=== PATIENT | male | born 1955 | race Hispanic/Latino ===

== ENCOUNTER 2018-01-17 06:05 | Inpatient (IN) | payer OTHER ==
[2018-01-17 06:53] LABS: #Eosinphils 0.2 thou/uL (0.0-0.7); #Lymphocytes 2.1 thou/uL (1.20-3.40); #Monocytes 0.5 thou/uL (0.11-0.59); #Neutrophils 2.6 thou/uL (1.40-6.50); %Basophils 0.8 % (0.0-1.0); %Lymphocytes 37.9 % (21.0-51.0); %Monocytes 9.2 % (0.0-10.0); %Neutrophils 48.1 % (42.0-75.0); Hemoglobin 14.8 g/dL (14.0-18.0); Mean Corpuscular HGB CONC 34.2 g/dL (32.0-36.0); Mean Corpuscular Hemoglobin 31.6 pg (27.0-31.0); Mean Corpuscular Volume 92.3 fL (78.0-98.0); Mean Platelet Volume 8.1 fL (7.4-10.4); Platelet Count 188 thou/uL (130-400); RBC Distribution Width 11.2 % (11.5-14.5); White Blood Cell (WBC) Count 5.5 thou/uL (4.8-10.8)
[2018-01-17] MEDS ORDERED: Ondansetron PF 4 MG/2 ML Vial IVP PRN ×3 (07:00→17:49)
[2018-01-17] MEDS ORDERED: Acetaminophen 325 MG TAB PO PRN ×3 (07:00→17:49)
[2018-01-17] MEDS ORDERED: Ondansetron ODT 4 MG TAB SL PRN (07:00)
[2018-01-17 07:15] LABS: CKMB 6.1 ng/mL (0-6.6)
[2018-01-17 07:20] LABS: ALT (SGPT) 11 U/L (8-55); AST (SGOT) 16 U/L (5-34); Albumin 4.3 g/dL (3.4-4.8); Alkaline Phosphatase 63 U/L (40-150); Anion Gap 12 mmol/L (10-20); BUN (Urea Nitrogen) 11 mg/dL (8.4-25.7); Bilirubin, Total 0.5 mg/dL (0.2-1.2); Calc. Creatinine Clearance 0 mL/min (70-130); Calcium 9.2 mg/dL (7.8-10.44); Carbon Dioxide 24 mmol/L (23-31); Chloride 105 mmol/L (98-107); Estimated GFR-MDRD 87; Globulin 2.9 g/dL (2.4-3.5); Glucose 157 mg/dL (80-115); Magnesium 2.1 mg/dL (1.6-2.6); Potassium 3.4 mmol/L (3.5-5.1); Protein, Total 7.2 g/dL (5.8-8.1); Sodium 138 mmol/L (136-145)
[2018-01-17 07:27] LABS: Troponin I 0.767 ng/mL (< 0.028)
--- NOTE | 2018-01-17 07:54 | RAD ---
FRONTAL RADIOGRAPH CHEST: DATE: 01/17/2018. COMPARISON: 01/16/2018. HISTORY: Chest pain. FINDINGS: Heart and mediastinal contours are stable. No pneumothorax, pleural fluid, focal consolidation, or a lveolar edema. IMPRESSION: No acute findings. POS: [facility]
[2018-01-17] MEDS ORDERED: Senokot S 8.6-50 MG TAB PO PRN (10:14)
[2018-01-17] MEDS ORDERED: Guaifenesin DM 100-10/5 ML UDCUP PO PRN ×2 (10:14→17:49)
[2018-01-17] MEDS ORDERED: Sodium Chloride 0.9% 1,000 ML IV SCH (10:15)
[2018-01-17 11:05] LABS: Cardiac Risk 4.4 (Less than 4.5)
--- NOTE | 2018-01-17 11:17 | HP ---
REASON FOR ADMISSION: Chest pain, non-ST elevation myocardial infarction. HISTORY OF PRESENT ILLNESS: The patient gives history of having chest pain yesterday night in his pr isabel cell. Patient states he had cold air blowing from the vent right above him and thought he was c ongested. This lasted for 30-40 minutes. This morning he woke up, he felt fine, but was concerned a bout it. He informed skilled nursing officials and they brought him here. His initial troponin at [place] [facility] was apparently normal. Second set troponin went up to 0.76 at present. Currently, he has no ches t pain, palpitation, PND or orthopnea. Has some dry cough, but no expectoration. Patient does not r ecall if he has had any prior stress test. Please note the patient is a very poor historian. No wilfred or history of PR or coronary artery disease as far as he knows. PAST MEDICAL AND SURGICAL HISTORY: Likely mild hypertension, but does not take any medication. No p rior surgical history. He states 5 years back, he had a chest infection. CURRENT MEDICATIONS: None. ALLERGIES: No known drug allergies. PERSONAL HISTORY: Does not abuse alcohol or drugs. No history of smoking. He is currently in [facility]. FAMILY HISTORY: Mother at the age of 85 years. Father is alive. CODE STATUS: FULL patient is and is power of real estate attorney. REVIEW OF SYSTEMS: The following complete review of systems was negative, unless otherwise mentioned in the HPI or below: Constitutional: Weight loss or gain, ability to conduct usual activities. Sk in: Rash, itching. Eyes: Double vision, pain. ENT/Mouth: Nose bleeding, neck stiffness, pain, te nderness. Cardiovascular: Palpitations, dyspnea on exertion, orthopnea. Respiratory: Shortness of breath, wheezing, cough, hemoptysis, fever or night sweats. Gastrointestinal: Poor appetite, abdom inal pain, heartburn, nausea, vomiting, constipation, or diarrhea. Genitourinary: Urgency, frequenc y, dysuria, nocturia. Musculoskeletal: Pain, swelling. Neurologic/Psychiatric: Anxiety, depressio n. Allergy/Immunologic: Skin rash, bleeding tendency. PHYSICAL EXAMINATION: GENERAL: The patient is a 62-year-old male who is currently not in any acute distress. VITAL SIGNS: Blood pressure 148/86, pulse 64 per minute, respiratory rate 18 per minute, temperature 98.6 degrees Fahrenheit, saturating 97% on room air. NECK: Supple, no elevated JVD. HEENT: Extraocular muscles intact. Pupils reacting to light. Oral cavity mucous membranes are mois t. No exudates or congestion. CARDIOVASCULAR: S1, S2 heard. Regular rhythm. RESPIRATORY: Air entry 1+ bilateral. Scattered rhonchi plus no rales or wheezes. ABDOMEN: Soft, bowel sounds heard. No tenderness, rigidity or guarding. EXTREMITIES: No peripheral edema or calf tenderness. VASCULAR SYSTEM: Peripheral pulses 1+ bilateral, no ischemic ulcerations or gangrene. CENTRAL NERVOUS SYSTEM: No gross focal deficits noted. Patient is alert, awake, oriented well. PSYCHIATRIC: The patient's mood is euthymic. No hallucinations or delusions. LABORATORY AND X-RAY FINDINGS: EKG done shows normal sinus rhythm at 65 beats per minute. There is Q-wave seen in the inferior wall leads. T-inversion is seen in V5, V6. There is also poor R-wave pr ogression. Chest x-ray done shows no acute infiltrate. Troponin I 0.76, CK-MB 6.1. Liver enzymes w ithin normal limits. Albumin is 4.3, BUN 11, creatinine 0.8, serum glucose 157, potassium is 3.4. W darrin count of 5, H and H 14 and 43, platelet count 188, MCV is 92. CLINICAL IMPRESSION AND PLAN: The patient will be admitted to telemetry for non-ST elevation myocard ial infarction with chest pain. The patient has some EKG changes suggestive of prior coronary artery disease, although the patient does not recall having had any stress test or cardiac workup in the [facility]. He will be on Lovenox 80 mg subcutaneous q.12 hourly along with full dose aspirin. Nitro paste half inch q.8 hourly. We will gently hydrate him with normal saline at 50 miles per hour. He will b e kept n.p.o. I have informed Dr. Garcia. Echo with 2D Doppler for LV function. We will obtain CT angio chest to rule out PE as well. The patient has clubbing clinically, it is unclear if it is c ongenital. He has never smoked in his life. He will be on a small dose of Lopressor 12.5 mg twice d aildominique.
[2018-01-17 11:21] LABS: Critical Call Chem Troponin I RESULT DECREASING; Troponin I 0.735 ng/mL (< 0.028)
[2018-01-17] MEDS ORDERED: Enoxaparin Sodium 80 MG/0.8 ML SYRINGE SC SCH ×2 (12:00→21:00)
[2018-01-17] MEDS ORDERED: Lidocaine 1% (PF) 30 ML VIAL ONE (12:32)
[2018-01-17] MEDS ORDERED: traMADol HCl 50 MG TAB PO PRN (13:25)
[2018-01-17] MEDS ORDERED: Acetaminophen/Codeine 30-300mg Tablet PO PRN ×2 (13:25)
[2018-01-17] MEDS ORDERED: Nitroglycerin 0.4 MG TAB (25 Tab Bottle) SL PRN (13:25)
--- NOTE | 2018-01-17 13:26 | CON ---
DATE OF CONSULTATION: 01/17/2018 REASON FOR CONSULTATION: Unstable angina. HISTORY OF PRESENT ILLNESS: Mr. Garcia is a 62-year-old gentleman, who recently complained of chest pain. It was acute in onset with neck and jaw radiation. He has had total of 4 episodes in e last several weeks. PAST MEDICAL HISTORY: Hypertension. ALLERGIES: None. SOCIAL HISTORY: No current tobacco or alcohol use. REVIEW OF SYSTEMS: Ten-point review of systems is reviewed and is as above, otherwise negative. MEDICATIONS: Lisinopril. PHYSICAL EXAMINATION: VITAL SIGNS: Blood pressure 133/77, pulse 62, temperature 98.2. GENERAL: Patient is a pleasant male, who is in no acute distress. The patient appears his stated ag e. VITAL SIGNS: NEUROLOGIC: The patient is alert and oriented times 3 with no focal neurologic deficits. HEENT: Sclerae without icterus. Mouth has moist mucous membranes with normal pallor. NECK: No JVD. Carotid upstroke brisk. No bruits bilaterally. LUNGS: Clear to auscultation with unlabored respirations. BACK: No scoliosis or kyphosis. CARDIAC: Regular rate and rhythm with normal S1 and S2. No S3 or S4 noted. No significant rubs, mu rmurs, thrills, or gallops noted throughout the precordium. PMI is not displaced. There is no dalia ternal heave. ABDOMEN: Soft, nontender, nondistended. No peritoneal signs present. No hepatosplenomegaly. No ab normal striae. EXTREMITIES: 2+ femoral and 2+ dorsalis pedis pulses. No cyanosis, clubbing, or edema. SKIN: No gross abnormalities. LABORATORY AND X-RAY FINDINGS: EKG shows normal sinus rhythm with ST-wave changes suggesting ischemi a. Troponin 0.7. IMPRESSION: 1. Unstable angina. 2. Hypertension. RECOMMENDATIONS: At this point, given elevated troponin, EKG changes, and symptoms, I would recommen d coronary angiography. I discussed the procedure in full detail with Mr. Garcia. The risks i nclude but are not limited to the following: , stroke, NV, need for emergency surgery, loss of limb, bleeding, and infection, as well as a reaction to the dye causing kidney failure and needing lo ng-term dialysis. I also discussed the risks of PCI to include all of the above including coronary d issection and perforation in addition to acute stent thrombosis and restenosis. All questions were a nswered. Given the above, patient agreed to proceed with the above procedure. Further recommendatio ns pending the above.
[2018-01-17] MEDS ORDERED: Iopamidol 370 76% 100 ML VIAL ONE ×2 (13:29→13:43)
[2018-01-17] MEDS ORDERED: Sodium Chloride 0.9% 200 ML IV PRN (13:30)
[2018-01-17] MEDS ORDERED: Heparin 10,000 UNITS/1 ML VIAL 30,000 UNITS in Sodium Chloride 0.9% 1,000 ML FS SCH (13:45)
[2018-01-17] MEDS ORDERED: Nitroglycerin 2% Ointment 1 INCH/1 GM Packet TOP SCH (14:00)
[2018-01-17] MEDS ORDERED: Fentanyl 100 MCG/2 ML VIAL ONE (14:12)
[2018-01-17] MEDS ORDERED: Vecuronium 10 MG VIAL ONE ×2 (14:12→14:21)
[2018-01-17] MEDS ORDERED: Midazolam HCl 5 mg/5 ml Vial ONE (14:12)
[2018-01-17] MEDS ORDERED: Dexmedetomidine 200 MCG/2 ML VIAL ONE (14:13)
[2018-01-17] MEDS ORDERED: Nitroglycerin 50 MG/250 ML BOT ONE (14:21)
[2018-01-17] MEDS ORDERED: PROPOFOL 200 MG/20 ML VIAL ONE (14:21)
[2018-01-17] MEDS ORDERED: Calcium Chloride 1 GM/10 ML Abboject SYRINGE ONE (14:21)
[2018-01-17] MEDS ORDERED: Mannitol 12.5 GM/50 ML ONE (14:21)
[2018-01-17] MEDS ORDERED: Heparin 30,000 units/30 ml VIAL ONE (14:21)
[2018-01-17] MEDS ORDERED: Cardioplegic Soln 1,000 ML BAG ONE (14:21)
[2018-01-17] MEDS ORDERED: PHENYLEPHRINE-NS 100 MCG/ML 10 ML SYRINGE ONE (14:21)
[2018-01-17] MEDS ORDERED: Glycopyrrolate 0.2 MG/ML 5 ML SYRINGE ONE (14:21)
[2018-01-17] MEDS ORDERED: Papaverine 60 MG/2 ML VIAL ONE (14:21)
[2018-01-17] MEDS ORDERED: Heparin 5,000 UNITS/ML VIAL ONE (14:21)
[2018-01-17] MEDS ORDERED: Lidocaine 2% PF 100 mg/5 ml Syringe ONE (14:21)
[2018-01-17] MEDS ORDERED: Thrombin 5000 UNITS/5 ML VIAL ONE (14:21)
[2018-01-17] MEDS ORDERED: Magnesium 5 GM/10 ML VIAL ONE (14:21)
[2018-01-17] MEDS ORDERED: Protamine Sulfate 250 MG/25 ML VIAL ONE (14:21)
[2018-01-17] MEDS ORDERED: Aminocaproic Acid 5 GM/20 ML VIAL ONE (14:21)
[2018-01-17] MEDS ORDERED: Potassium Chloride 60 MEQ/30 ML VIAL ONE (14:21)
[2018-01-17] MEDS ORDERED: Milrinone 10 MG/10 ML VIAL ONE (14:52)
[2018-01-17] MEDS ORDERED: Insulin Regular 300 UNITS/3 ML VIAL ONE (14:58)
[2018-01-17] MEDS ORDERED: Norepinephrine 8 MG/0.9% NS 250 ML ONE (15:08)
[2018-01-17] MEDS ORDERED: Sodium Bicarb 50 MEQ/50 ML Abboject 8.4% SYRINGE ONE (16:02)
--- NOTE | 2018-01-17 16:03 | CT ---
CT PULMONARY ANGIOGRAM WITH IV CONTRAST AND 3D POST PROCESSING: HISTORY: Chest pain. FINDINGS: There is good contrast opacification of the pulmonary arterial vasculature without filling defects to suggest pulmonary embolism. There are vascular calcifications without evidence of aneurysmal dilata tion of the thoracic aorta. No pleural or pericardial effusions are seen. There are dependent moses es in the lung bases. No pneumothoraces, lobar consolidation, or pulmonary masses or nodules are see n. There are degenerative changes in the spine. IMPRESSION: No CT evidence of pulmonary embolism. POS: [facility]
[2018-01-17] MEDS ORDERED: Insulin Regular 300 UNITS/3 ML VIAL SC PRN (17:32)
[2018-01-17] MEDS ORDERED: Dextrose 5% in Water 1,000 ML IV PRN (17:32)
[2018-01-17] MEDS ORDERED: Dextrose 50% Abboject 50 ML SYRINGE SLOW IVP PRN (17:32)
[2018-01-17 17:43] LABS: Base Excess (BEa) -2.1 mEq/L (-2.0 to +3.0); CO2 Tension 31.4 mmHg (35.0-45.0); Calcium, Ionized 1.06 mmol/L (1.12-1.30); Carboxyhemoglobin (COHb) 1.2 gm% (0.0-3.0); Hemoglobin (Hb) 13.4 g/dL (14.0-18.0); O2 Tension (PaO2) 119.8 mmHg (> 80.0); Potassium - ABG Lab 3.54 mmol/L (3.70-5.30); pH, Arterial 7.44 (7.35-7.45)
[2018-01-17 17:44] LABS: Puncture Site ALINE
[2018-01-17] MEDS ORDERED: Promethazine HCl 25 MG/ML VIAL IM PRN (17:49)
[2018-01-17] MEDS ORDERED: Norepinephrine 8 MG/0.9% NS 250 ML IVPB PRN (17:49)
[2018-01-17] MEDS ORDERED: Nitroglycerin 50 MG/250 ML BOT 250 ML IVPB PRN (17:49)
[2018-01-17] MEDS ORDERED: Bisacodyl 5 MG TAB PO PRN (17:49)
[2018-01-17] MEDS ORDERED: HYDROcodone/Acetaminophen 5/325 mg Tablet PO PRN ×2 (17:49)
[2018-01-17] MEDS ORDERED: Post-Op Insulin Drip Protocol IVPB ONE (17:49)
[2018-01-17] MEDS ORDERED: Mag-Al 1200 mg/1200 mg/30 ML UDCUP PO PRN (17:49)
[2018-01-17] MEDS ORDERED: Magnesium 2 GM/NS 0.9% 100 ML 2 GM in Premix Bag 1 BAG IVPB SCH (17:49)
[2018-01-17] MEDS ORDERED: Fentanyl 100 MCG/2 ML VIAL SLOW IVP PRN ×2 (17:49)
[2018-01-17] MEDS ORDERED: D5 1/2 NS w/20 mEq KCL 1,000 ML IV SCH (17:49)
[2018-01-17] MEDS ORDERED: Bisacodyl 10 MG SUPP PR PRN (17:49)
[2018-01-17] MEDS ORDERED: hydrALAZINE 20 MG/ML VIAL SLOW IVP PRN (17:49)
[2018-01-17] MEDS ORDERED: Hetastarch 6% 500 ML 500 ML IVPB PRN (17:49)
[2018-01-17] MEDS ORDERED: D5 1/2 NS w/20 mEq KCL 1,000 ML ONE (17:55)
[2018-01-17 18:02] LABS: #Eosinphils 0.1 thou/uL (0.0-0.7); #Lymphocytes 1.4 thou/uL (1.20-3.40); #Monocytes 0.8 thou/uL (0.11-0.59); #Neutrophils 10.6 thou/uL (1.40-6.50); %Basophils 0.2 % (0.0-1.0); %Lymphocytes 10.8 % (21.0-51.0); %Monocytes 6.4 % (0.0-10.0); %Neutrophils 81.6 % (42.0-75.0); Hemoglobin 13.4 g/dL (14.0-18.0); Mean Corpuscular Hemoglobin 31.7 pg (27.0-31.0); Mean Corpuscular Volume 93.2 fL (78.0-98.0); Mean Platelet Volume 8.7 fL (7.4-10.4); Platelet Count 147 thou/uL (130-400); RBC Distribution Width 11.2 % (11.5-14.5); Red Blood Cell (RBC) Count 4.22 mill/uL (4.70-6.10)
[2018-01-17 18:09] LABS: INR-International Normal Ratio 1.3; PTT 35.2 SEC (22.9-36.1)
--- NOTE | 2018-01-17 18:14 | CON ---
DATE OF CONSULTATION: 01/17/2018 REASON FOR CONSULTATION: Evaluate the patient for coronary artery bypass grafting. HISTORY OF PRESENT ILLNESS: Mr. Garcia is a 62-year-old prisoner who was brought here with non -ST elevation myocardial infarction from the [place] [facility]. He was urgently taken for cardiac cathete rization revealing an occluded LAD. He has subtotal occlusion of the right coronary and near occlusi on of his circumflex. I have been asked to see him for coronary artery bypass grafting. PAST MEDICAL HISTORY: Hypertension. PAST SURGICAL HISTORY: None. CURRENT MEDICATIONS: Unknown. ALLERGIES: None. SOCIAL HISTORY: He does not use tobacco or alcohol. He is in skilled nursing for murder. REVIEW OF SYSTEMS: Not performed. It is reviewed through the ER chart. 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 VITAL SIGNS: Height 5 feet 4 inches, weight 173 pounds, BSA is 1.88, temperature is 98.2, pulse is 6 2 and regular, blood pressure 133/77. HEENT: Sclerae nonicteric. Pupils equal and round bilaterally. NECK: Supple. CHEST: Clear bilaterally. HEART: Rhythm is regular. ABDOMEN: Soft, nontender. EXTREMITIES: No edema. VASCULAR: He has palpable carotid, radial, femoral pulses bilaterally. VENOUS: There are no venous varicosities. LABORATORY DATA AND IMAGING DATA: Of note, hemoglobin is 14.8, platelet count is 188,000. Creatinin e is 0.88. Potassium is 3.4. Troponin is 0.76. Chest x-ray shows clear lung gonzalez bilaterally. H is heart is mildly enlarged. His mediastinum is normal. ASSESSMENT AND PLAN: This is a 62-year-old prisoner with an acute non-ST elevation myocardial infarc tion and severe LAD, circumflex, and right coronary artery disease. I have been asked to see him to perform a 3-vessel bypass. The patient is agreeable. We will take him as soon as OR is available on time.
[2018-01-17 18:16] LABS: Anion Gap 10 mmol/L (10-20); BUN (Urea Nitrogen) 7 mg/dL (8.4-25.7); Calc. Creatinine Clearance 138 mL/min (70-130); Calcium 7.5 mg/dL (7.8-10.44); Carbon Dioxide 20 mmol/L (23-31); Chloride 113 mmol/L (98-107); Estimated GFR-MDRD Greater than 90; Glucose 117 mg/dL (80-115); Potassium 3.7 mmol/L (3.5-5.1); Sodium 139 mmol/L (136-145)
[2018-01-17] MEDS: Ketorolac Tromethamine 30 MG/ML VIAL IVP SCH (19:20)
[2018-01-17] MEDS: CEFAZOLIN 2 GM/50 ML BAG IVPB SCH (20:07)
--- NOTE | 2018-01-17 20:26 | RAD ---
AP VIEW CHEST: 01/17/18 HISTORY: Status post open heart surgery. AP view chest obtained on 01/17/18. Comparison made to previous exam from 01/17/18. AP view chest demonstrates sternotomy wires seen. A right subclavian central line is seen. Distal tip overlying the right atrium. Mediastinal surgical drains in place. Endotracheal tube is in good position. The lungs are well aerat ed. No evidence of acute intrathoracic abnormality is seen. No evidence of effusions, pneumonia, or p neumothorax seen. IMPRESSION: Status post operative changes without evidence of acute intrathoracic abnormality seen. POS: [facility]
[2018-01-17] MEDS: Famotidine/PF 20 mg/2ml Vial SLOW IVP SCH (20:42)
[2018-01-17 20:47] LABS: Base Excess (BEa) -3.1 mEq/L (-2.0 to +3.0); CO2 Tension 34.9 mmHg (35.0-45.0); Calcium, Ionized 1.06 mmol/L (1.12-1.30); Carboxyhemoglobin (COHb) 0.8 gm% (0.0-3.0); Hemoglobin (Hb) 13.3 g/dL (14.0-18.0); O2 Tension (PaO2) 133.4 mmHg (> 80.0); Potassium - ABG Lab 3.16 mmol/L (3.70-5.30)
[2018-01-17 20:53] LABS: ALV-art Gradient 108.175 (0-20); Puncture Site LINE
[2018-01-17] MEDS ORDERED: Metoprolol Tartrate 25 MG TAB PO SCH (21:00)
[2018-01-17] MEDS ORDERED: Famotidine 20 MG TAB PO SCH (21:00)
--- NOTE | 2018-01-17 22:59 | OP ---
DATE OF PROCEDURE: 01/17/2018 PREOPERATIVE DIAGNOSES: Coronary artery disease/status post [id number] myocardial infarction/hypertension. POSTOPERATIVE DIAGNOSES: Coronary artery disease/status post [id number] myocardial infarction/hypertension. PROCEDURE: Coronary artery bypass grafting in emergency fashion x3. 1. Left internal mammary artery to 2.5 mm LAD - good conduit and target. 2. Reverse saphenous vein to 3.0 mm OM - good conduit and target. 3. Reverse saphenous vein to 2.5 mm PDA - good conduit and target. SURGEON: Roland Iniguez MD and Zana Gaona MD. ANESTHESIA: General endotracheal; Jason Gross MD, Slim Brito MD, and muna Garcia CRNA PUMP TIME: 32 minutes. CROSS-CLAMP TIME: 27 minutes. LOW CORE TEMPERATURE: 34 degree Celsius. ENGINE REPAIRER SERVICE: Jose Alejandro Castillo. DRAINS: 24-Bahamian chest tubes x2. DRIPS: Levophed at 5 mcg. TRANSFUSIONS: None. DESCRIPTION OF PROCEDURE: After consent was obtained, the patient was brought to the operating room, placed in supine position on the operating room table. Appropriate anesthetic monitor was placed and general endotracheal anesthesia induced. Chest, abdomen, and legs were prepped and draped in usual sterile fashion. Greater saphenous vein was harvested from the left lower extremity utilizing an endoscopic technique. Wounds were irrigated and closed in layers. Median sternotomy was performed. Left internal mammary artery was harvested as a pedicle graft. The patient was systemically heparinized. Distal pedicle was divided and infused with papaverine. Thymic fat and pericardium were divided with electrocautery. Pericardial stay sutures were placed. Aortic and atrial cannulation was performed. After adequate heparinization, the patient underwent retrograde priming and was placed on cardiopulmonary bypass. Distal targets were marked. Aortic cross-clamp was applied and antegrade sanguinous cardioplegic arrest obtained. One liter of antegrade cold [place] cardioplegia was given. Topical cold solution was used. Reverse saphenous vein was anastomosed to PDA in end-to-side fashion with running 7-0 Prolene suture. Anastomosis was tested and was hemostatic. Reverse saphenous vein was anastomosed to the OM in end-to-side fashion with running 7-0 Prolene suture. Anastomosis was tested and was hemostatic. Mammary artery was brought through a window in the pericardium and anastomosed to LAD in end-to-side fashion with running 7-0 Prolene suture. On release of mammary clamps, good hooding of the anastomosis and good distal flow. Pedicle secured with interrupted 6-0 Prolene suture. Cross-clamp was removed and partial occluding clamp placed. Saphenous veins were anastomosed to individual punch sites with running 6-0 Prolene suture. Partial occluding clamp was removed and grafts deaired. Anastomoses were inspected for hemostasis, which was good. The patient was warmed and weaned from cardiopulmonary bypass. After resumption of sinus rhythm, good hemodynamics, and temperature greater than 36.5, bypass was discontinued. Transfusions were given. Decannulation was performed and pursestring sutures secured. Protamine was administered. Twenty-four Bahamian chest tubes were placed in mediastinum. After adequate hemostasis had been obtained, sternum was treated with vancomycin paste. Sternum was closed with #7 wire. Sternum was treated with platelet-rich plasma and wires twisted. Wounds were irrigated and treated with platelet-poor plasma, and closed in multiple layers. Incisions were treated with Dermabond. Needle, sponge, and instrument counts were all reported as correct at the end of procedure. The patient tolerated the procedure well, and was transferred to the Intensive Care Unit in critical condition. ROBIN
[2018-01-17 23:20] LABS: Hemoglobin 12.7 g/dL (14.0-18.0)
[2018-01-17 23:33] LABS: Potassium 3.6 mmol/L (3.5-5.1)
[2018-01-18] MEDS: Ketorolac Tromethamine 30 MG/ML VIAL IVP SCH ×4 (00:01→17:34)
[2018-01-18] MEDS: Potassium Chloride 20 MEQ/100 ML PREMIX BAG IVPB PRN ×2 (00:38→05:53)
[2018-01-18] MEDS: CEFAZOLIN 2 GM/50 ML BAG IVPB SCH ×2 (04:10→11:25)
[2018-01-18 04:57] LABS: #Lymphocytes 0.8 thou/uL (1.20-3.40); #Monocytes 0.7 thou/uL (0.11-0.59); #Neutrophils 7.4 thou/uL (1.40-6.50); %Basophils 0.3 % (0.0-1.0); %Eosinophils 0.1 % (0.0-10.0); %Monocytes 7.9 % (0.0-10.0); %Neutrophils 82.7 % (42.0-75.0); Mean Corpuscular HGB CONC 33.8 g/dL (32.0-36.0); Mean Corpuscular Hemoglobin 31.3 pg (27.0-31.0); Mean Corpuscular Volume 92.6 fL (78.0-98.0); Mean Platelet Volume 8.5 fL (7.4-10.4); Platelet Count 128 thou/uL (130-400); RBC Distribution Width 11.1 % (11.5-14.5); Red Blood Cell (RBC) Count 3.51 mill/uL (4.70-6.10)
[2018-01-18 05:17] LABS: Anion Gap 10 mmol/L (10-20); BUN (Urea Nitrogen) 9 mg/dL (8.4-25.7); Calc. Creatinine Clearance 122 mL/min (70-130); Calcium 8.1 mg/dL (7.8-10.44); Carbon Dioxide 21 mmol/L (23-31); Chloride 111 mmol/L (98-107); Estimated GFR-MDRD Greater than 90; Glucose 117 mg/dL (80-115); Potassium 3.7 mmol/L (3.5-5.1); Sodium 138 mmol/L (136-145)
[2018-01-18 06:29] VITALS: BMI 30.6
--- NOTE | 2018-01-18 08:14 | PDOC.CTH ---
Cardiology Progress Note - Subjective Doing well. No complaints. CT still in place. - Objective Vital Signs Temp Pulse Ox 01/18/18 07:12 98 01/18/18 07:04 99 01/18/18 04:00 98.2 F 01/18/18 00:00 98.0 F Weight 178 lb 5.663 oz 01/17/18 01/18/18 01/19/18 06:59 06:59 05:59 Intake Total 1331.0 0 Output Total 1861 70 Balance -530.0 -70 - Physical Examination General/Neuro: alert & oriented x3, NAD Neck: carotid US brisk, no JVD present Lungs: unlabored respirations Heart: RRR Abdomen: NT/ND, soft Extremities: + femoral B - Labs Result Diagrams: 01/18/18 04:15 01/18/18 04:15 Troponin/CKMB CK-MB (CK-2) 6.1 ng/mL (0-6.6) 01/17/18 06:45 Troponin I 0.735 ng/mL (< 0.028) H* 01/17/18 10:36 - Assessment/Plan [place] CAD s/p CABG Doing well Extubated IP and ambulation Add statin and BB
[2018-01-18] MEDS: Famotidine/PF 20 mg/2ml Vial SLOW IVP SCH (08:39)
[2018-01-18] MEDS ORDERED: Magnesium 2 GM/50 ML 2 GM in Premix Bag 1 BAG IVPB SCH (08:45)
[2018-01-18] MEDS ORDERED: Enoxaparin Sodium 40 MG/0.4 ML SYRINGE SC SCH (09:00)
[2018-01-18] MEDS ORDERED: Magnesium 2 GM/NS 0.9% 100 ML 2 GM in Premix Bag 1 BAG IVPB SCH (09:00)
[2018-01-18] MEDS ORDERED: Aspirin 325 MG TAB PO SCH ×2 (09:00)
--- NOTE | 2018-01-18 11:39 | RAD ---
PORTABLE CHEST: HISTORY: Pop open heart surgery. COMPARISON: 01/17/2018 exam. FINDINGS: The endotracheal tube has been removed. There is otherwise a stable appearance to the chest. IMPRESSION: Interval removal of the endotracheal tube. POS: [facility]
--- NOTE | 2018-01-18 12:04 | PDOC.PN ---
- Subjective Encounter Start Date: 01/18/18 Encounter Start Time: 10:20 Subjective: is sitting in chair, no sob -: feels better, ate his breakfast well per RN -: got extubated overnight - Objective Resuscitation Status: Resuscitation Status FULL:Full Resuscitation MAR Reviewed: Yes Vital Signs & Weight: Vital Signs (12 hours) Temp Pulse Ox 01/18/18 07:12 98 01/18/18 07:04 99 01/18/18 04:00 98.2 F Weight Weight 178 lb 5.663 oz Most Recent Monitor Data Heart Rate from ECG 90 NIBP 108/62 NIBP BP-Mean 77 Respiration from ECG 22 SpO2 98 I&O: 01/17/18 01/18/18 01/19/18 06:59 06:59 05:59 Intake Total 1331.0 365 Output Total 1861 170 Balance -530.0 195 Result Diagrams: 01/18/18 04:15 01/18/18 04:15 Additional Labs: Accuchecks 01/18/18 01/18/18 01/18/18 08:11 06:15 05:03 POC Glucose 103 110 111 H 01/18/18 01/18/18 01/18/18 04:16 03:11 02:11 POC Glucose 124 H 113 H 123 H 01/18/18 01/17/18 01/17/18 01:05 23:59 23:01 POC Glucose 131 H 133 H 127 H 01/17/18 01/17/18 01/17/18 22:07 20:59 20:05 POC Glucose 107 141 H 111 H 01/17/18 01/17/18 01/17/18 19:06 17:43 17:01 POC Glucose 125 H 113 H 132 H 01/17/18 01/17/18 01/17/18 16:24 15:58 15:28 POC Glucose 156 H 285 H 193 H 01/17/18 14:56 POC Glucose 200 H Phys Exam - Physical Examination HEENT: PERRLA, moist MMs Neck: no JVD, supple Respiratory: no wheezing chest tube+ Cardiovascular: RRR, no significant murmur Gastrointestinal: soft, non-tender, positive bowel sounds Musculoskeletal: no edema, pulses present Neurological: non-focal, moves all 4 limbs Psychiatric: normal affect, A&O x 3 Dx/Plan (1) S/P CABG (coronary artery bypass graft) Code(s): Z95.1 - PRESENCE OF AORTOCORONARY BYPASS GRAFT Status: Acute Comment: x3, garcia to lad, rsvg to OM and PDA (2) NSTEMI (non-ST elevated myocardial infarction) Code(s): I21.4 - NON-ST ELEVATION (NSTEMI) MYOCARDIAL INFARCTION Status: Acute (3) HTN (hypertension) Code(s): I10 - ESSENTIAL (PRIMARY) HYPERTENSION Status: Acute Qualifiers: Hypertension type: essential hypertension Qualified Code(s): I10 - Essential (primary) hypertension (4) DM type 2 (diabetes mellitus, type 2) Status: Acute Qualifiers: Diabetes mellitus fpc insulin use: without exterminator helper use Diabetes mellitus complication status: with unspecified complications Qualified Code(s) : E11.8 - Type 2 diabetes mellitus with unspecified complications Comment: new onset (5) Dyslipidemia Code(s): E78.5 - HYPERLIPIDEMIA, UNSPECIFIED Status: Acute - Plan may start asp, lipitor, small dose of coreg -: levemir 5 u bid once he is off post cabg insulin protocol -: is recovering well post op -: will f/u * . Review of Systems - Medications/Allergies Allergies/Adverse Reactions: Allergies Allergy/AdvReac Type Severity Reaction Status Date / Time No Known Allergies Allergy Verified 01/17/18 10:37 Medications: Current Medications Acetaminophen (Tylenol) 650 mg PO Q6H PRN PRN Reason: Headache/Fever Or Mild Pain Hydrocodone Bitart/Acetaminophen ([place] 5/325) 1 tab PO Q4H PRN PRN Reason: Moderate Pain (4-6) Hydrocodone Bitart/Acetaminophen ([place] 5/325) 2 tab PO Q4H PRN PRN Reason: Severe Pain (7-10) Al Hydroxide/Mg Hydroxide (Maalox) 30 ml PO Q4H PRN PRN Reason: Indigestion Albumin Human (Albumin 5%) 12.5 gm IVPB Q6H PRN PRN Reason: To Maintain SBP> 90 mmHG Stop: 01/18/18 17:50 Albumin Human (Albumin 5%) 25 gm IVPB Q6H PRN PRN Reason: To Maintain SBP > 90 mmHG Stop: 01/18/18 17:50 Last Admin: 01/18/18 02:35 Dose: 25 gm Albuterol/Ipratropium (Duoneb) 3 ml NEB [id number] PRN PRN Reason: SHORTNESS OF BREATH Aspirin (Aspirin) 325 mg PO DAILY [facility] Last Admin: 01/18/18 08:39 Dose: 325 mg Atorvastatin Calcium (Lipitor) 10 mg PO HS [facility] Bisacodyl (Dulcolax) 10 mg PO Q12H PRN PRN Reason: Constipation Bisacodyl (Dulcolax) 10 mg [place] Q12H PRN PRN Reason: Constipation Famotidine (Pepcid) 20 mg PO BID [facility] Fentanyl (Sublimaze) 25 mcg SLOW IVP Q2H PRN PRN Reason: Moderate Pain (4-6) Stop: 01/19/18 17:08 Fentanyl (Sublimaze) 50 mcg SLOW IVP Q2H PRN PRN Reason: Severe Pain (7-10) Stop: 01/19/18 17:08 Guaifenesin/Dextromethorphan (Robitussin Dm) 15 ml PO Q4H PRN PRN Reason: Cough Hydralazine HCl (Apresoline) 10 mg SLOW IVP Q6H PRN PRN Reason: To Maintain SBP< 140mmHG Hetastarch/Sodium Chloride (Hespan) 500 mls @ 0 mls/hr IVPB PRN PRN PRN Reason: To Maintain SBP > 90mmHg Stop: 01/18/18 17:08 Norepinephrine Bitartrate (Levophed) 250 mls @ 0 mls/hr IVPB PRN PRN; Protocol PRN Reason: To maintain SBP > 90 mmHG Last Admin: 01/17/18 19:21 Dose: 250 mls Magnesium Sulfate 2 gm/ Device 100 mls @ 100 mls/hr IVPB ONE [facility] Stop: 01/18/18 17:50 Magnesium Sulfate 2 gm/ Device 100 mls @ 100 mls/hr IVPB QAM [facility] Stop: 01/19/18 09:59 Last Admin: 01/18/18 08:51 Dose: Not Given Levofloxacin 500 mg/ Device 100 mls @ 100 mls/hr IVPB 1200 [facility] Stop: 01/18/18 12:59 Last Admin: 01/18/18 11:25 Dose: 100 mls Ketorolac Tromethamine (Toradol) 30 mg IVP Q6HR [facility] Stop: 01/20/18 18:01 Last Admin: 01/18/18 11:26 Dose: 30 mg Ondansetron HCl (Zofran) 4 mg IVP Q6H PRN PRN Reason: Nausea/Vomiting Potassium Chloride (Kcl) 20 meq IVPB PRN PRN PRN Reason: K level </= 4.0 Last Admin: 01/18/18 05:53 Dose: 20 meq Promethazine HCl (Phenergan) 6.25 mg IM Q4H PRN PRN Reason: Nausea/Vomiting Sodium Chloride (Flush - Normal Saline) 10 ml IVF PRN PRN PRN Reason: Saline Flush
[2018-01-18] MEDS: Famotidine 20 MG TAB PO SCH (20:41)
[2018-01-18] MEDS: Atorvastatin Calcium 10 MG TAB PO SCH (20:41)
[2018-01-19] MEDS: Ketorolac Tromethamine 30 MG/ML VIAL IVP SCH ×4 (00:15→17:42)
[2018-01-19] MEDS ORDERED: Milk Of Magnesia 30 ML UDCUP PO PRN (08:07)
[2018-01-19] MEDS ORDERED: Mag-Al 1200 mg/1200 mg/30 ML UDCUP PO PRN (08:07)
[2018-01-19] MEDS ORDERED: Bisacodyl 5 MG TAB PO PRN (08:07)
[2018-01-19] MEDS ORDERED: Nitroglycerin 0.4 MG TAB (25 Tab Bottle) SL PRN (08:07)
[2018-01-19] MEDS ORDERED: Zolpidem Tartrate 5 MG TAB PO PRN (08:07)
[2018-01-19] MEDS ORDERED: Artificial Tears 18 DROP/0.9 ML EA EYE PRN (08:07)
[2018-01-19] MEDS ORDERED: Bisacodyl 10 MG SUPP PR PRN (08:07)
[2018-01-19] MEDS ORDERED: diphenhydrAMINE 25 MG CAP PO PRN (08:07)
[2018-01-19] MEDS ORDERED: Mineral Oil ENEMA PR PRN (08:07)
[2018-01-19] MEDS: Carvedilol 3.125 MG TAB PO SCH ×2 (08:43→22:48)
[2018-01-19] MEDS: Famotidine 20 MG TAB PO SCH ×2 (08:43→22:48)
[2018-01-19] MEDS: Aspirin 325 mg Enteric Coated Tablet PO SCH (08:43)
--- NOTE | 2018-01-19 10:18 | PDOC.CTH ---
Cardiology Progress Note - Subjective No complaints. No CP/SOB. - Objective Vital Signs Temp Pulse Ox 01/19/18 08:00 99.0 F 93 L 01/19/18 04:00 99.6 F 01/19/18 00:00 98.9 F Admit Weight 178 lb 5.663 oz Weight 176 lb 9.444 oz 01/18/18 01/19/18 01/20/18 07:59 06:59 06:59 Intake Total 360 Output Total 55 Balance 305 - Physical Examination General/Neuro: alert & oriented x3 Neck: no JVD present Lungs: CTA Heart: RRR Abdomen: NT/ND Extremities: other: (no edema) - Telemetry Telemetry Rhythm: SR - Labs Result Diagrams: 01/18/18 04:15 01/18/18 04:15 Troponin/CKMB CK-MB (CK-2) 6.1 ng/mL (0-6.6) 01/17/18 06:45 Troponin I 0.735 ng/mL (< 0.028) H* 01/17/18 10:36 - Assessment/Plan 1. UA 2. 3VCAD s/p CABG Doing well. No changes to care. Continue increased activity.
--- NOTE | 2018-01-19 10:18 | PDOC.PN ---
- Subjective Encounter Start Date: 01/19/18 Encounter Start Time: 09:45 Subjective: sitting in chair, had his breakfast -: no sob or pain - Objective Resuscitation Status: Resuscitation Status FULL:Full Resuscitation MAR Reviewed: Yes Vital Signs & Weight: Vital Signs (12 hours) Temp Pulse Ox 01/19/18 08:00 99.0 F 93 L 01/19/18 04:00 99.6 F 01/19/18 00:00 98.9 F Weight Admit Weight 178 lb 5.663 oz Weight 176 lb 9.444 oz Most Recent Monitor Data Heart Rate from ECG 87 NIBP 102/56 NIBP BP-Mean 71 Respiration from ECG 20 SpO2 96 I&O: 01/18/18 01/19/18 01/20/18 07:59 06:59 06:59 Intake Total 360 Output Total 55 Balance 305 Result Diagrams: 01/18/18 04:15 01/18/18 04:15 Phys Exam - Physical Examination HEENT: PERRLA, moist MMs Neck: no JVD, supple Respiratory: no wheezing, no rales Cardiovascular: RRR, no significant murmur Gastrointestinal: soft, non-tender, positive bowel sounds Musculoskeletal: no edema, pulses present Neurological: non-focal, moves all 4 limbs Psychiatric: normal affect, A&O x 3 Dx/Plan (1) S/P CABG (coronary artery bypass graft) Code(s): Z95.1 - PRESENCE OF AORTOCORONARY BYPASS GRAFT Status: Acute Comment: x3, garcia to lad, rsvg to OM and PDA (2) NSTEMI (non-ST elevated myocardial infarction) Code(s): I21.4 - NON-ST ELEVATION (NSTEMI) MYOCARDIAL INFARCTION Status: Acute (3) HTN (hypertension) Code(s): I10 - ESSENTIAL (PRIMARY) HYPERTENSION Status: Acute Qualifiers: Hypertension type: essential hypertension Qualified Code(s): I10 - Essential (primary) hypertension (4) DM type 2 (diabetes mellitus, type 2) Status: Acute Qualifiers: Diabetes mellitus rod hanger insulin use: without rod hanger use Diabetes mellitus complication status: with unspecified complications Qualified Code(s) : E11.8 - Type 2 diabetes mellitus with unspecified complications Comment: new onset (5) Dyslipidemia Code(s): E78.5 - HYPERLIPIDEMIA, UNSPECIFIED Status: Acute - Plan got his chest tubes removed -: getting tx to tele, post op recovering well -: sbp around 90-100 -: continue asp, coreg and lipitor, nebs prn -: to amb as tolerated * . Review of Systems - Medications/Allergies Allergies/Adverse Reactions: Allergies Allergy/AdvReac Type Severity Reaction Status Date / Time No Known Allergies Allergy Verified 01/17/18 10:37 Medications: Current Medications Hydrocodone Bitart/Acetaminophen ([place] 5/325) 1 tab PO Q4H PRN PRN Reason: Moderate Pain (4-6) Hydrocodone Bitart/Acetaminophen ([place] 5/325) 2 tab PO Q4H PRN PRN Reason: Severe Pain (7-10) Al Hydroxide/Mg Hydroxide (Maalox) 30 ml PO Q4H PRN PRN Reason: Indigestion Albuterol/Ipratropium (Duoneb) 3 ml NEB [id number] PRN PRN Reason: SHORTNESS OF BREATH Artificial Tears (Tears Naturale) 0 drop EA EYE PRN PRN PRN Reason: Dry Eyes Aspirin (Ecotrin) 325 mg PO DAILY [facility] Last Admin: 01/19/18 08:43 Dose: 325 mg Atorvastatin Calcium (Lipitor) 10 mg PO HS [facility] Last Admin: 01/18/18 20:41 Dose: 10 mg Bisacodyl (Dulcolax) 10 mg PO Q12H PRN PRN Reason: Constipation Bisacodyl (Dulcolax) 10 mg [place] Q12H PRN PRN Reason: Constipation Carvedilol (Coreg) 3.125 mg PO BID [facility] Last Admin: 01/19/18 08:43 Dose: 3.125 mg Diphenhydramine HCl (Benadryl) 25 mg PO Q6H PRN PRN Reason: Itching & Insomnia or Benigno Fransico Famotidine (Pepcid) 20 mg PO BID [facility] Last Admin: 01/19/18 08:43 Dose: 20 mg Guaifenesin/Dextromethorphan (Robitussin Dm) 15 ml PO Q4H PRN PRN Reason: Cough Ketorolac Tromethamine (Toradol) 30 mg IVP Q6HR [facility] Stop: 01/20/18 18:01 Last Admin: 01/19/18 05:15 Dose: 30 mg Magnesium Hydroxide (Milk Of Magnesium) 30 ml PO Q12H PRN PRN Reason: Constipation Mineral Oil (Fleet Mineral Oil) 133 ml [place] DAILYPRN PRN PRN Reason: Constipation Nitroglycerin (Nitrostat) 0.4 mg SL Q5MIN PRN PRN Reason: Chest Pain Ondansetron HCl (Zofran) 4 mg IVP Q6H PRN PRN Reason: Nausea/Vomiting Sodium Chloride (Flush - Normal Saline) 10 ml IVF PRN PRN PRN Reason: Saline Flush Zolpidem Tartrate (Ambien) 5 mg PO HSPRN PRN PRN Reason: Insomnia
[2018-01-19] MEDS: Guaifenesin DM 100-10/5 ML UDCUP PO PRN ×2 (10:24→17:41)
--- NOTE | 2018-01-19 10:33 | RAD ---
PORTABLE CHEST: HISTORY: Postop open heart surgery. COMPARISON: Prior day's study. FINDINGS: Heart size remains enlarged with postop sternotomy change. Right subclavian line is unchanged in pos ition. Some subsegmental atelectatic change is seen in the right base. IMPRESSION: Stable exam. POS: [facility]
[2018-01-19] MEDS ORDERED: Dextrose 50% Abboject 50 ML SYRINGE SLOW IVP PRN (17:11)
[2018-01-19] MEDS ORDERED: Dextrose 5% in Water 1,000 ML IV PRN (17:11)
[2018-01-19] MEDS: HumaLOG 300 UNITS/3 ML VIAL SC PRN ×2 (17:39→22:49)
[2018-01-19] MEDS: metFORMIN 500 MG TAB PO SCH (22:48)
[2018-01-19] MEDS: Atorvastatin Calcium 10 MG TAB PO SCH (22:48)
[2018-01-20] MEDS: Ketorolac Tromethamine 30 MG/ML VIAL IVP SCH ×4 (01:44→17:33)
[2018-01-20] MEDS: Guaifenesin DM 100-10/5 ML UDCUP PO PRN ×2 (01:45→06:31)
[2018-01-20] MEDS: metFORMIN 500 MG TAB PO SCH ×3 (09:20→22:18)
[2018-01-20] MEDS: Aspirin 325 mg Enteric Coated Tablet PO SCH (09:20)
[2018-01-20] MEDS: Carvedilol 3.125 MG TAB PO SCH ×2 (09:20→22:18)
[2018-01-20] MEDS: Famotidine 20 MG TAB PO SCH ×2 (09:20→22:18)
[2018-01-20] MEDS: HumaLOG 300 UNITS/3 ML VIAL SC PRN ×4 (09:21→22:20)
[2018-01-20] MEDS ORDERED: Insulin Glargine 20 UNITS in Pre-Filled Syringe 1 EACH SC SCH (11:28)
--- NOTE | 2018-01-20 11:31 | PDOC.PN ---
- Subjective Encounter Start Date: 01/20/18 Encounter Start Time: 09:45 Subjective: feels better, no pain or sob -: is amb with cardiac rehab and eating well - Objective Resuscitation Status: Resuscitation Status FULL:Full Resuscitation MAR Reviewed: Yes Vital Signs & Weight: Vital Signs (12 hours) Temp Pulse Resp BP Pulse Ox 01/20/18 08:00 98.4 F 76 16 107/62 93 L 01/20/18 03:40 98.7 F 74 20 101/55 L 96 Weight Admit Weight 178 lb 5.663 oz Weight 188 lb 11.451 oz Most Recent Monitor Data Heart Rate from ECG 87 NIBP 102/56 NIBP BP-Mean 71 Respiration from ECG 20 SpO2 96 I&O: 01/19/18 01/20/18 01/21/18 06:59 06:59 06:59 Intake Total 600 240 Output Total 735 Balance -135 240 Result Diagrams: 01/18/18 04:15 01/18/18 04:15 Additional Labs: Accuchecks 01/20/18 01/20/18 01/19/18 11:14 05:41 20:57 POC Glucose 293 H 276 H 265 H 01/19/18 16:56 POC Glucose 330 H Phys Exam - Physical Examination HEENT: PERRLA, moist MMs Neck: no JVD, supple Respiratory: no wheezing, no rales Cardiovascular: RRR, no significant murmur Gastrointestinal: soft, non-tender, positive bowel sounds Musculoskeletal: no edema, pulses present Neurological: non-focal, moves all 4 limbs Psychiatric: normal affect, A&O x 3 Dx/Plan (1) S/P CABG (coronary artery bypass graft) Code(s): Z95.1 - PRESENCE OF AORTOCORONARY BYPASS GRAFT Status: Acute Comment: x3, garcia to lad, rsvg to OM and PDA (2) NSTEMI (non-ST elevated myocardial infarction) Code(s): I21.4 - NON-ST ELEVATION (NSTEMI) MYOCARDIAL INFARCTION Status: Acute (3) HTN (hypertension) Code(s): I10 - ESSENTIAL (PRIMARY) HYPERTENSION Status: Acute Qualifiers: Hypertension type: essential hypertension Qualified Code(s): I10 - Essential (primary) hypertension (4) DM type 2 (diabetes mellitus, type 2) Status: Acute Qualifiers: 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 Review of Systems - Medications/Allergies Allergies/Adverse Reactions: Allergies Allergy/AdvReac Type Severity Reaction Status Date / Time No Known Allergies Allergy Verified 01/17/18 10:37 Medications: Current Medications Hydrocodone Bitart/Acetaminophen ([place] 5/325) 1 tab PO Q4H PRN PRN Reason: Moderate Pain (4-6) Last Admin: 01/19/18 17:41 Dose: 1 tab Hydrocodone Bitart/Acetaminophen ([place] 5/325) 2 tab PO Q4H PRN PRN Reason: Severe Pain (7-10) Last Admin: 01/19/18 10:24 Dose: 2 tab Al Hydroxide/Mg Hydroxide (Maalox) 30 ml PO Q4H PRN PRN Reason: Indigestion Albuterol/Ipratropium (Duoneb) 3 ml NEB [id number] PRN PRN Reason: SHORTNESS OF BREATH Artificial Tears (Tears Naturale) 0 drop EA EYE PRN PRN PRN Reason: Dry Eyes Aspirin (Ecotrin) 325 mg PO DAILY [facility] Last Admin: 01/20/18 09:20 Dose: 325 mg Atorvastatin Calcium (Lipitor) 10 mg PO HS [facility] Last Admin: 01/19/18 22:48 Dose: 10 mg Bisacodyl (Dulcolax) 10 mg PO Q12H PRN PRN Reason: Constipation Last Admin: 01/19/18 10:23 Dose: 10 mg Bisacodyl (Dulcolax) 10 mg ID Q12H PRN PRN Reason: Constipation Carvedilol (Coreg) 3.125 mg PO BID [facility] Last Admin: 01/20/18 09:20 Dose: Not Given Dextrose/Water (Dextrose 50%) 25 gm SLOW IVP PRN PRN PRN Reason: Hypoglycemia Diphenhydramine HCl (Benadryl) 25 mg PO Q6H PRN PRN Reason: Itching & Insomnia or Benigno Fransico Last Admin: 01/19/18 22:48 Dose: 25 mg Famotidine (Pepcid) 20 mg PO BID [facility] Last Admin: 01/20/18 09:20 Dose: 20 mg Glucagon (Glucagon) 1 mg IM PRN PRN PRN Reason: Hypoglycemia Guaifenesin/Dextromethorphan (Robitussin Dm) 15 ml PO Q4H PRN PRN Reason: Cough Last Admin: 01/20/18 06:31 Dose: 15 ml Dextrose/Water (D5w) 1,000 mls @ 0 mls/hr IV .Q0M PRN PRN Reason: Hypoglycemia Insulin Glargine 20 units/ (Miscellaneous Medication) 0.2 mls @ 0 mls/hr [facility] Stop: 01/20/18 11:29 Insulin Human Lispro (Humalog) 0 units SC .MODERATE SLIDING SC PRN PRN Reason: Moderate Correctional Scale Last Admin: 01/20/18 09:21 Dose: 6 unit Insulin Human Lispro (Humalog) 0 units SC .BEDTIME SLIDING SC PRN PRN Reason: Bedtime Correctional Scale Last Admin: 01/19/18 22:49 Dose: 3 unit Ketorolac Tromethamine (Toradol) 30 mg IVP Q6HR [facility] Stop: 01/20/18 18:01 Last Admin: 01/20/18 06:30 Dose: 30 mg Magnesium Hydroxide (Milk Of Magnesium) 30 ml PO Q12H PRN PRN Reason: Constipation Last Admin: 01/19/18 10:24 Dose: 30 ml Metformin HCl (Glucophage) 500 mg PO TID [facility] Last Admin: 01/20/18 09:20 Dose: 500 mg Mineral Oil (Fleet Mineral Oil) 133 ml ID DAILYPRN PRN PRN Reason: Constipation Nitroglycerin (Nitrostat) 0.4 mg SL Q5MIN PRN PRN Reason: Chest Pain Ondansetron HCl (Zofran) 4 mg IVP Q6H PRN PRN Reason: Nausea/Vomiting Sodium Chloride (Flush - Normal Saline) 10 ml IVF PRN PRN PRN Reason: Saline Flush Zolpidem Tartrate (Ambien) 5 mg PO HSPRN PRN PRN Reason: Insomnia
--- NOTE | 2018-01-20 11:55 | EKG ---
Test Reason : Blood Pressure : / mmHG Vent. Rate : 071 BPM Atrial Rate : 071 BPM P-R Int : 190 ms QRS Dur : 092 ms QT Int : 444 ms P-R-T Axes : 021 -21 -56 degrees QTc Int : 482 ms Normal sinus rhythm Inferior infarct (cited on or before 17-JAN-2018) Abnormal ECG Confirmed by HONG AMANDA ([id number]) on 01/20/2018 11:55:20 AM Referred By: ROSEANNE Confirmed By:HONG AMANDA
[2018-01-20] MEDS: Atorvastatin Calcium 10 MG TAB PO SCH (22:18)
--- NOTE | 2018-01-21 06:48 | DIS ---
DATE OF ADMISSION: 01/17/2018 DATE OF DISCHARGE: Transferred to the [facility] 01/20/2018. DIAGNOSES: 1. Coronary artery disease. 2. ST elevation myocardial infarction. 3. Hypertension. 4. Hyperlipidemia. PROCEDURES: 1. Cardiac catheterization. 2. Emergency coronary artery bypass grafting x3 - 1) Left internal mammary artery to LAD. 2) Reversed saphenous vein to OM; 3) Reversed saphenous vein to PDA. DESCRIPTION OF HOSPITAL STAY: Mr. Garcia was brought from [facility] with chest pain. He underwent cardiac catheterization revealing critical 3-vessel disease. He was taken to the operating room and underwent bypass as above. He has done well postoperatively, being transferred to the [facility] . DISCHARGE MEDICATIONS: 1. Aspirin 325 mg every day. 2. Lipitor 10 mg at bedtime. 3. Coreg 3.125 mg b.i.d. 4. Glucophage 500 mg t.i.d. 5. [place] 5/325 1-2 q.6 hours p.r.n. pain.
[2018-01-21] MEDS: Famotidine 20 MG TAB PO SCH (08:49)
[2018-01-21] MEDS: metFORMIN 500 MG TAB PO SCH (08:49)
[2018-01-21] MEDS: Carvedilol 3.125 MG TAB PO SCH (08:50)
[2018-01-21] MEDS: Aspirin 325 mg Enteric Coated Tablet PO SCH (08:50)
[2018-01-21] MEDS ORDERED: Losartan 25 MG TAB PO SCH (09:00)
[2018-01-21] MEDS ORDERED: Clopidogrel Bisulfate 75 MG TAB PO SCH (09:15)
--- NOTE | 2018-01-21 11:19 | PDOC.PN ---
- Subjective Encounter Start Date: 01/21/18 Encounter Start Time: 09:45 Subjective: no chest pain or sob -: is amb and eating well - Objective Resuscitation Status: Resuscitation Status FULL:Full Resuscitation MAR Reviewed: Yes Vital Signs & Weight: Vital Signs (12 hours) Temp Pulse Resp BP Pulse Ox 01/21/18 07:23 99.4 F 80 18 131/77 96 01/21/18 04:00 99.5 F 79 18 134/79 96 01/21/18 00:55 96 Weight Admit Weight 178 lb 5.663 oz Weight 186 lb 12.8 oz Most Recent Monitor Data Heart Rate from ECG 87 NIBP 102/56 NIBP BP-Mean 71 Respiration from ECG 20 SpO2 96 I&O: 01/20/18 01/21/18 01/22/18 06:59 06:59 06:59 Intake Total 600 1020 Output Total 735 Balance -135 1020 Result Diagrams: 01/18/18 04:15 01/18/18 04:15 Additional Labs: Accuchecks 01/21/18 01/21/18 01/20/18 10:53 05:41 20:50 POC Glucose 161 H 167 H 229 H 01/20/18 01/20/18 17:12 11:14 POC Glucose 211 H 293 H Phys Exam - Physical Examination HEENT: PERRLA, moist MMs Neck: no JVD, supple Respiratory: no wheezing, no rales Cardiovascular: RRR, no significant murmur Gastrointestinal: soft, non-tender, positive bowel sounds Musculoskeletal: no edema, pulses present Neurological: non-focal, moves all 4 limbs Psychiatric: normal affect, A&O x 3 Dx/Plan (1) S/P CABG (coronary artery bypass graft) Code(s): Z95.1 - PRESENCE OF AORTOCORONARY BYPASS GRAFT Status: Acute Comment: x3, garcia to lad, rsvg to OM and PDA (2) NSTEMI (non-ST elevated myocardial infarction) Code(s): I21.4 - NON-ST ELEVATION (NSTEMI) MYOCARDIAL INFARCTION Status: Acute (3) HTN (hypertension) Code(s): I10 - ESSENTIAL (PRIMARY) HYPERTENSION Status: Acute Qualifiers: Hypertension type: essential hypertension Qualified Code(s): I10 - Essential (primary) hypertension (4) DM type 2 (diabetes mellitus, type 2) Status: Acute Qualifiers: Diabetes mellitus 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
--- NOTE | 2018-01-21 12:49 | PDOC.CTH ---
Cardiology Progress Note - Subjective No complaints - Objective Vital Signs Temp Pulse Resp BP Pulse Ox 01/21/18 07:23 99.4 F 80 18 131/77 96 01/21/18 04:00 99.5 F 79 18 134/79 96 01/21/18 00:55 96 Admit Weight 178 lb 5.663 oz Weight 186 lb 12.8 oz 01/20/18 01/21/18 01/22/18 06:59 06:59 06:59 Intake Total 600 1020 Output Total 735 Balance -135 1020 - Physical Examination General/Neuro: alert & oriented x3, NAD Neck: carotid US brisk, no JVD present Lungs: unlabored respirations Heart: PMI normal, RRR Abdomen: NT/ND, soft Extremities: + femoral B - Telemetry Telemetry Rhythm: sr - Labs Result Diagrams: 01/18/18 04:15 01/18/18 04:15 Troponin/CKMB CK-MB (CK-2) 6.1 ng/mL (0-6.6) 01/17/18 06:45 Troponin I 0.735 ng/mL (< 0.028) H* 01/17/18 10:36 - Assessment/Plan [place] Severe CAD s/p CABG Add ARB for DM On BB, statin and ASA Ok for dc from my standpoint
[2018-01-21 14:09] VITALS: BP 130/79; TEMP 99
[2018-01-22] MEDS ORDERED: Clopidogrel Bisulfate 75 MG TAB PO SCH (09:00)
== END 2018-01-21 15:10 | DRG 234 ==
LOC: ERS 06:05 → 2NO 10:08 → EEVIPCON 10:08 → CCU 16:09 → 2NO 01-19 08:07
PROVIDERS: ADMIT Internal Medicine; ATTEND Internal Medicine
PROC: 02100Z9 Bypass Coronary Artery, One Artery from Left Internal Mammary, Open Approach (ICD-10-PCS; principal; 2018-01-17)
PROC: 4A023N7 Measurement of Cardiac Sampling and Pressure, Left Heart, Percutaneous Approach (ICD-10-PCS; 2018-01-17)
PROC: 021109W Bypass Coronary Artery, Two Arteries from Aorta with Autologous Venous Tissue, Open Approach (ICD-10-PCS; 2018-01-17)
PROC: 06BQ4ZZ Excision of Left Saphenous Vein, Percutaneous Endoscopic Approach (ICD-10-PCS; 2018-01-17)
PROC: 5A1221Z Performance of Cardiac Output, Continuous (ICD-10-PCS; 2018-01-17)
PROC: B2111ZZ Fluoroscopy of Multiple Coronary Arteries using Low Osmolar Contrast (ICD-10-PCS; 2018-01-17)
PROC: B2151ZZ Fluoroscopy of Left Heart using Low Osmolar Contrast (ICD-10-PCS; 2018-01-17)
DX: I21.4 Non-ST elevation (NSTEMI) myocardial infarction (principal); I25.110 Atherosclerotic heart disease of native coronary artery with unstable angina pectoris; I10 Essential (primary) hypertension; E78.5 Hyperlipidemia, unspecified; E11.9 Type 2 diabetes mellitus without complications
CPT/HCPCS: 36415; 36416; 71045; 71275; 76942; 80048; 80053; 80061; 82553; 82805; 83036; 83735; 84484; 85025; 85610; 85730; 86850; 86900; 86901; 93005; 93010; 93306; 93458; 93798; 94002; 94150; 94760; C1769; J1642; J1644; J1650; J1815; J1885; J1956; J2001; J2150; J2250; J2260; J2440; J2704; J2720; J3010; J3370; J3475; J3480; J7050; P9045; S0017; S0028